=== PATIENT | female | born 1975 | race American Indian/Alaskan Native ===

== ENCOUNTER 2017-08-06 14:04 | Emergency (ER) | payer MEDICAID, OTHER ==
[~2017-08-06] VITALS: Ht 160 cm; Wt 86.4 kg
[~2017-08-06 14:04] MED LIST: BACI3.5O2 RIGHTEYE; DICL100G15 TP; GENT5DRO4 EACHEYE
[2017-08-06] MEDS ORDERED: ketorolac tromethamine 15mg/ml inj. IM ONE (17:10)
[2017-08-06] MEDS ORDERED: IBUP-1985 PO (17:14)
[2017-08-06] MEDS ORDERED: diazepam 5mg tablet PO ONE (17:15)
[2017-08-06 17:27] VITALS: BP 128/88
== END 2017-08-06 17:28 | disposition home or self-care (01) ==
LOC: ER 14:05
DX: M54.5 Low back pain (principal); K21.9 Gastro-esophageal reflux disease without esophagitis; Z90.49 Acquired absence of other specified parts of digestive tract; Z98.890 Other specified postprocedural states; Z88.5 Allergy status to narcotic agent; Z88.8 Allergy status to other drugs, medicaments and biological substances; Z79.899 Other long term (current) drug therapy; X58.XXXA Exposure to other specified factors, initial encounter; Y93.89 Activity, other specified; Y92.89 Other specified places as the place of occurrence of the external cause; Y99.8 Other external cause status
CPT/HCPCS: 96372; 99283; J1885

== ENCOUNTER 2017-09-10 20:46 | Emergency (ER) | payer MEDICAID, OTHER ==
[~2017-09-10] VITALS: Ht 160 cm; Wt 84.0 kg
[~2017-09-10 20:46] MED LIST changes: +IBUP-1985 PO
[2017-09-10 20:54] VITALS: BP 120/90
[2017-09-10] MEDS ORDERED: CIP750T PO (21:28)
[2017-09-10] MEDS ORDERED: ONDA8TAB9 PO ×2 (21:28→21:32)
[2017-09-10] MEDS ORDERED: ondansetron 4mg rapidly disintigrating tab PO ONE (21:30)
[2017-09-10] MEDS ORDERED: ibuprofen tablet 400 MG TABLET PO ONE (21:30)
[2017-09-10 21:43] LABS: URINE HCG NEGATIVE (NEG)
== END 2017-09-10 22:32 | disposition left against medical advice (07) ==
LOC: ER 20:47
DX: R05 Cough (principal); R51 Headache; R11.2 Nausea with vomiting, unspecified; M54.9 Dorsalgia, unspecified; K21.9 Gastro-esophageal reflux disease without esophagitis; Z90.49 Acquired absence of other specified parts of digestive tract; Z98.890 Other specified postprocedural states; Z88.5 Allergy status to narcotic agent; Z88.8 Allergy status to other drugs, medicaments and biological substances; Z79.899 Other long term (current) drug therapy
CPT/HCPCS: 81025; 99283

== ENCOUNTER 2017-10-02 01:52 | Emergency (ER) | payer MEDICAID, OTHER ==
[~2017-10-02] VITALS: Ht 158.8 cm; Wt 87.0 kg
[~2017-10-02 01:52] MED LIST changes: +CIP750T PO; +ONDA8TAB9 PO
[2017-10-02 02:00] VITALS: BP 113/78
[2017-10-02] MEDS ORDERED: AZIT-63 PO (03:02)
[2017-10-02] MEDS ORDERED: BENZ-16 PO (03:02)
== END 2017-10-02 03:30 | disposition home or self-care (01) ==
LOC: ER 01:52
DX: J40 Bronchitis, not specified as acute or chronic (principal); K21.9 Gastro-esophageal reflux disease without esophagitis; Z90.49 Acquired absence of other specified parts of digestive tract; Z98.890 Other specified postprocedural states; Z88.8 Allergy status to other drugs, medicaments and biological substances; Z88.5 Allergy status to narcotic agent; Z79.899 Other long term (current) drug therapy
CPT/HCPCS: 99283

== ENCOUNTER 2017-12-02 13:25 | Emergency (ER) | payer MEDICAID ==
[~2017-12-02] VITALS: Ht 157.5 cm; Wt 85.2 kg
[~2017-12-02 13:25] MED LIST changes: -CIP750T PO
[2017-12-02 13:42] VITALS: BP 120/74
[2017-12-02] MEDS ORDERED: ESCI10TA PO (14:08)
[2017-12-02] MEDS ORDERED: LORazepam 1 MG tablet PO ONE (14:10)
== END 2017-12-02 14:21 | disposition home or self-care (01) ==
LOC: ER 13:25
DX: F41.9 Anxiety disorder, unspecified (principal); K21.9 Gastro-esophageal reflux disease without esophagitis; F32.9 Major depressive disorder, single episode, unspecified; G89.29 Other chronic pain; M25.552 Pain in left hip; Z90.49 Acquired absence of other specified parts of digestive tract; Z98.890 Other specified postprocedural states; Z88.5 Allergy status to narcotic agent; Z88.8 Allergy status to other drugs, medicaments and biological substances; Z79.899 Other long term (current) drug therapy
CPT/HCPCS: 99284

== ENCOUNTER 2018-02-21 13:34 | Emergency (ER) | payer MEDICAID ==
[~2018-02-21] VITALS: Ht 158.8 cm; Wt 84.3 kg
[~2018-02-21 13:34] MED LIST changes: +ESCI10TA PO
[2018-02-21 13:53] VITALS: BP 127/73
[2018-02-21] MEDS ORDERED: AZIT250T83 PO (14:09)
== END 2018-02-21 14:17 | disposition home or self-care (01) ==
LOC: ER 13:34
DX: J06.9 Acute upper respiratory infection, unspecified (principal); K21.9 Gastro-esophageal reflux disease without esophagitis; Z90.49 Acquired absence of other specified parts of digestive tract; Z98.890 Other specified postprocedural states; Z88.5 Allergy status to narcotic agent; Z88.8 Allergy status to other drugs, medicaments and biological substances; Z79.2 Long term (current) use of antibiotics; Z79.899 Other long term (current) drug therapy
CPT/HCPCS: 99283

== ENCOUNTER 2018-03-18 14:39 | Emergency (ER) | payer MEDICAID ==
[~2018-03-18] VITALS: Ht 157.5 cm; Wt 82.2 kg
[2018-03-18 14:43] VITALS: BP 122/74
[2018-03-18] MEDS ORDERED: NAPR-56 PO (16:00)
[2018-03-18] MEDS ORDERED: ketorolac trometh inj. 60 MG/2 ML VIAL IM ONE (16:00)
[2018-03-18 16:17] LABS: CLARITY,URINE CLOUDY (Clear); COLOR,URINE YELLOW (Yellow); GLUCOSE, URINE NEGATIVE (Neg); KETONES,URINE TRACE mg/dl (Neg); LEUKOCYTE ESTERASE ,URINE SMALL (Neg); NITRITES, URINE NEGATIVE (Neg); OCCULT BLOOD,URINE TRACE-INTACT (Neg); PH,URINE 5.5 (4.8-8.0); PROTEIN,URINE NEGATIVE (Neg)
[2018-03-18 16:26] LABS: UA COLLECTION TYPE CLN CATCH MIDSTREAM
[2018-03-18 16:27] LABS: MUCUS STRANDS MODERATE /LPF (Neg); SQUAMOUS EPITHELIAL CELL,UR MODERATE /LPF (FEW)
[2018-03-18 16:28] LABS: BACTERIA,URINE 1+ /HPF (Neg); WBC,URINE 50-100 /HPF (0-4)
--- NOTE | 2018-03-21 09:00 | NUR ---
LAB CALLED WITH MDRO ON URINE SAMPLE, LAB RESULTS RECIEVED AND NOTED THAT PT HAD NOT BEEN GIVEN ABX AT [facility]. ABNORMAL LAB SHEET FILLED OUT AND GIVEN TO DR ROCHA FOR F/U
== END 2018-03-18 16:26 | disposition home or self-care (01) ==
LOC: ER 14:40
DX: M54.6 Pain in thoracic spine (principal); M62.830 Muscle spasm of back; K21.9 Gastro-esophageal reflux disease without esophagitis; Z90.49 Acquired absence of other specified parts of digestive tract; Z98.890 Other specified postprocedural states; Z88.8 Allergy status to other drugs, medicaments and biological substances; Z79.899 Other long term (current) drug therapy
CPT/HCPCS: 81001; 87088; 96372; 99283; J1885; 87077; 87186

== ENCOUNTER 2018-03-26 09:28 | Emergency (ER) | payer MEDICAID ==
[~2018-03-26] VITALS: Ht 157.5 cm; Wt 84.0 kg
[~2018-03-26 09:28] MED LIST changes: +NAPR-56 PO
[2018-03-26 10:33] LABS: BASOPHILS % (AUTO) 0.4 % (0-1); EOSINOPHILS # (AUTO) 0.2 X10'3 (0-0.9); EOSINOPHILS % (AUTO) 2.3 % (0-6); HEMOGLOBIN 14.2 g/dl (12.0-16.0); LYMPHOCYTES # (AUTO) 1.1 X10'3 (1.1-4.8); LYMPHOCYTES % (AUTO) 15.5 % (21-51); MEAN CORPUSCULAR HEMOGLOBIN 29.8 PG (27.0-31.0); MEAN CORPUSCULAR HGB CONC 33.8 g/dL (33.0-36.5); MEAN PLATELET VOLUME 8.6 FL (7.4-10.4); MONOCYTES # (AUTO) 0.4 X10'3 (0-0.9); MONOCYTES % (AUTO) 5.9 % (2-12); NEUTROPHILS # (AUTO) 5.4 X10'3 (1.8-7.7); NEUTROPHILS % (AUTO) 75.9 % (42-75); PLATELET COUNT 269 X10'3 (140-440); RED BLOOD COUNT 4.77 X10'6 (4.20-5.60); RED CELL DISTRIBUTION WIDTH 13.3 % (11.5-14.5); WHITE BLOOD COUNT 7.1 X10'3 (4.5-11.0)
[2018-03-26 10:50] LABS: ALANINE AMINOTRANSFERASE 55 U/L (12-78); ALBUMIN 3.5 G/DL (3.4-5.0); ALBUMIN/GLOBULIN RATIO 0.8 (1.1-1.5); ALKALINE PHOSPHATASE 97 IU/L (46-116); ANION GAP 6 (8-16); ASPARTATE AMINO TRANSFERASE 31 U/L (10-37); BILIRUBIN,TOTAL 0.3 MG/DL (0.1-1.0); BLOOD UREA NITROGEN 11 MG/DL (7-18); BUN/CREATININE RATIO 13.6 (6.6-38.0); CALCIUM 8.9 MG/DL (8.5-10.1); CHLORIDE 103 MMOL/L (99-107); CREATININE 0.81 MG/DL (0.40-0.90); GLUCOSE 115 MG/DL (70-104); POTASSIUM 4.1 MMOL/L (3.5-5.1); SODIUM 139 MMOL/L (135-145); TOTAL CARBON DIOXIDE 30.1 MMOL/L (24-32); TOTAL PROTEIN 7.8 G/DL (6.4-8.2); eGFR 77 ML/MIN
[2018-03-26] MEDS ORDERED: CIPR-230 PO (12:08)
[2018-03-26 12:10] VITALS: BP 125/77
--- NOTE | 2018-03-26 12:10 | NUR ---
PT REPORTS SYMPTOMS OF N/V AND ABD HAVE RESOLVED IN ED.
== END 2018-03-26 12:33 | disposition home or self-care (01) ==
LOC: ER 09:28
DX: T39.8X5A Adverse effect of other nonopioid analgesics and antipyretics, not elsewhere classified, initial encounter (principal); N39.0 Urinary tract infection, site not specified; K21.9 Gastro-esophageal reflux disease without esophagitis; Z90.49 Acquired absence of other specified parts of digestive tract; Z98.890 Other specified postprocedural states; Z86.69 Personal history of other diseases of the nervous system and sense organs; Z88.5 Allergy status to narcotic agent; Z88.1 Allergy status to other antibiotic agents; Z88.8 Allergy status to other drugs, medicaments and biological substances; Z79.2 Long term (current) use of antibiotics; Z79.899 Other long term (current) drug therapy; Y92.89 Other specified places as the place of occurrence of the external cause
CPT/HCPCS: 36415; 80053; 84702; 85025; 99283

== ENCOUNTER 2018-05-02 21:05 | Emergency (ER) | payer MEDICAID ==
[~2018-05-02] VITALS: Ht 157.5 cm; Wt 79.0 kg
[~2018-05-02 21:05] MED LIST changes: -NAPR-56 PO
[2018-05-02 21:15] VITALS: BP 131/91
[2018-05-02] MEDS ORDERED: ibuprofen tablet 400 MG TABLET PO ONE (23:10)
[2018-05-02] MEDS ORDERED: cyclobenzaprine 10mg tablet PO ONE (23:10)
[2018-05-02] MEDS ORDERED: CYCL-1 PO (23:26)
== END 2018-05-02 23:42 | disposition home or self-care (01) ==
LOC: ER 21:05
DX: S39.012A Strain of muscle, fascia and tendon of lower back, initial encounter (principal); G89.29 Other chronic pain; M25.552 Pain in left hip; K21.9 Gastro-esophageal reflux disease without esophagitis; Z90.49 Acquired absence of other specified parts of digestive tract; Z88.6 Allergy status to analgesic agent; Z88.1 Allergy status to other antibiotic agents; Z88.2 Allergy status to sulfonamides; Z88.8 Allergy status to other drugs, medicaments and biological substances; X50.0XXA Overexertion from strenuous movement or load, initial encounter; Y93.89 Activity, other specified; Y92.89 Other specified places as the place of occurrence of the external cause; Y99.0 Civilian activity done for income or pay
CPT/HCPCS: 99283

== ENCOUNTER 2018-10-02 19:59 | Emergency (ER) | payer MEDICAID ==
[~2018-10-02] VITALS: Ht 157.5 cm; Wt 75.0 kg
[~2018-10-02 19:59] MED LIST changes: +CYCL-1 PO
[2018-10-02] MEDS ORDERED: orphenadrine citrate 60mg/2ml inj. IM ONE (20:35)
[2018-10-02] MEDS ORDERED: ketorolac trometh inj. 60 MG/2 ML VIAL IM ONE (20:35)
[2018-10-02] MEDS ORDERED: HYDROcodone/acetaminophen 10/325mg tab PO ONE (20:35)
[2018-10-02] MEDS ORDERED: HYDR-4353 PO (20:37)
[2018-10-02] MEDS ORDERED: ORPH100T2 PO (20:37)
[2018-10-02] MEDS ORDERED: IBUP-1986 PO (20:37)
--- NOTE | 2018-10-02 21:05 | NUR ---
PATIENT IS NOT ALLERGIC TO CODEINE: A CHILD IT MADE HER VERY SLEEPY: NOW LISTED AN ADVERSE REACTION
--- NOTE | 2018-10-02 21:07 | NUR ---
PATIENT CO OF LOWER MEDIAL BACK DULL ACHING PAIN THAT DID NOT ALLOW SLEEP LAST NIGHT : ALLEVE AND ICE TO NO RELIEF
[2018-10-02 21:29] VITALS: BP 128/67
== END 2018-10-02 21:38 | disposition home or self-care (01) ==
LOC: ER 20:00
DX: M54.5 Low back pain (principal); K21.9 Gastro-esophageal reflux disease without esophagitis; E11.9 Type 2 diabetes mellitus without complications; G89.29 Other chronic pain; F41.9 Anxiety disorder, unspecified; F32.9 Major depressive disorder, single episode, unspecified; Z90.49 Acquired absence of other specified parts of digestive tract; Z98.890 Other specified postprocedural states; Z88.8 Allergy status to other drugs, medicaments and biological substances; Z88.2 Allergy status to sulfonamides; Z79.2 Long term (current) use of antibiotics; Z79.899 Other long term (current) drug therapy
CPT/HCPCS: 96372; 99283; J1885; J2360

== ENCOUNTER 2019-01-31 18:57 | Emergency (ER) | payer MEDICAID ==
[~2019-01-31] VITALS: Ht 157.5 cm; Wt 85.0 kg
[~2019-01-31 18:57] MED LIST changes: +IBUP-1986 PO; +ORPH100T2 PO
[2019-01-31 19:05] VITALS: BP 136/84
[2019-01-31 19:28] LABS: CLARITY,URINE CLOUDY (Clear); COLOR,URINE YELLOW (Yellow); GLUCOSE, URINE 250 mg/dl (Neg); KETONES,URINE NEGATIVE (Neg); LEUKOCYTE ESTERASE ,URINE MODERATE (Neg); NITRITES, URINE POSITIVE (Neg); OCCULT BLOOD,URINE LARGE (Neg); PROTEIN,URINE TRACE mg/dl (Neg)
[2019-01-31 19:29] LABS: URINE HCG NEGATIVE (NEG)
[2019-01-31 19:34] LABS: UA COLLECTION TYPE CLN CATCH MIDSTREAM
[2019-01-31 19:37] LABS: BACTERIA,URINE 1+ /HPF (Neg); MUCUS STRANDS FEW /LPF (Neg); SQUAMOUS EPITHELIAL CELL,UR MODERATE /LPF (FEW); WBC CLUMPS,URINE MODERATE /HPF (NEGATIVE); WBC,URINE 50-100 /HPF (0-4)
[2019-01-31] MEDS ORDERED: CEPH250T PO (19:46)
== END 2019-01-31 20:43 | disposition home or self-care (01) ==
LOC: ER 18:58
DX: N39.0 Urinary tract infection, site not specified (principal); K21.9 Gastro-esophageal reflux disease without esophagitis; E11.9 Type 2 diabetes mellitus without complications; G89.29 Other chronic pain; F41.9 Anxiety disorder, unspecified; F32.9 Major depressive disorder, single episode, unspecified; Z88.8 Allergy status to other drugs, medicaments and biological substances; Z88.2 Allergy status to sulfonamides; Z88.6 Allergy status to analgesic agent; Z79.2 Long term (current) use of antibiotics; Z79.899 Other long term (current) drug therapy; Z90.49 Acquired absence of other specified parts of digestive tract
CPT/HCPCS: 81001; 81025; 87077; 87088; 87186; 99283

== ENCOUNTER 2019-08-02 19:45 | Emergency (ER) | payer MEDICAID ==
[~2019-08-02] VITALS: Ht 160 cm; Wt 85.8 kg
[2019-08-02 19:47] VITALS: BP 133/72
[2019-08-02] MEDS ORDERED: ESCI10TA PO (20:15)
== END 2019-08-02 20:43 | disposition home or self-care (01) ==
LOC: ER 19:46
DX: F32.9 Major depressive disorder, single episode, unspecified (principal); K21.9 Gastro-esophageal reflux disease without esophagitis; E11.9 Type 2 diabetes mellitus without complications; G89.29 Other chronic pain; F41.9 Anxiety disorder, unspecified; Z76.0 Encounter for issue of repeat prescription; Z90.49 Acquired absence of other specified parts of digestive tract; Z98.890 Other specified postprocedural states; Z88.2 Allergy status to sulfonamides; Z88.8 Allergy status to other drugs, medicaments and biological substances; Z79.899 Other long term (current) drug therapy
CPT/HCPCS: 99281

== ENCOUNTER 2020-04-08 16:55 | Emergency (ER) | payer MEDICAID ==
[~2020-04-08] VITALS: Ht 152.4 cm; Wt 84.4 kg
[2020-04-08 17:08] VITALS: BP 118/83
[2020-04-08 17:36] LABS: BASOPHILS # (AUTO) 0.1 X10'3 (0-0.2); BASOPHILS % (AUTO) 0.9 % (0-1); EOSINOPHILS # (AUTO) 0.2 X10'3 (0-0.9); EOSINOPHILS % (AUTO) 2.1 % (0-6); HEMATOCRIT 39.5 % (35.0-45.0); HEMOGLOBIN 13.4 g/dl (12.0-16.0); LYMPHOCYTES # (AUTO) 2.5 X10'3 (1.1-4.8); LYMPHOCYTES % (AUTO) 29.4 % (21-51); MEAN CORPUSCULAR HEMOGLOBIN 29.1 PG (27.0-31.0); MEAN CORPUSCULAR HGB CONC 34.1 g/dL (33.0-36.5); MEAN CORPUSCULAR VOLUME 85.4 FL (78-98); MEAN PLATELET VOLUME 8.6 FL (7.4-10.4); MONOCYTES # (AUTO) 0.6 X10'3 (0-0.9); MONOCYTES % (AUTO) 7.2 % (2-12); NEUTROPHILS # (AUTO) 5.2 X10'3 (1.8-7.7); NEUTROPHILS % (AUTO) 60.4 % (42-75); PLATELET COUNT 274 X10'3 (140-440); RED BLOOD COUNT 4.62 X10'6 (4.20-5.60); RED CELL DISTRIBUTION WIDTH 12.7 % (11.5-14.5); WHITE BLOOD COUNT 8.7 X10'3 (4.5-11.0)
[2020-04-08 17:53] LABS: ALANINE AMINOTRANSFERASE 41 U/L (12-78); ALBUMIN 3.5 G/DL (3.4-5.0); ALBUMIN/GLOBULIN RATIO 0.8 (1.1-1.5); ALKALINE PHOSPHATASE 99 IU/L (46-116); ANION GAP 8 (8-16); ASPARTATE AMINO TRANSFERASE 28 U/L (10-37); BILIRUBIN,TOTAL 0.6 MG/DL (0.1-1.0); BLOOD UREA NITROGEN 10 MG/DL (7-18); BUN/CREATININE RATIO 11.9 (6.6-38.0); CALCIUM 8.6 MG/DL (8.5-10.1); CHLORIDE 103 MMOL/L (99-107); CREATININE 0.84 MG/DL (0.40-0.90); GLUCOSE 164 MG/DL (70-104); POTASSIUM 3.8 MMOL/L (3.5-5.1); SODIUM 139 MMOL/L (135-145); TOTAL CARBON DIOXIDE 27.7 MMOL/L (24-32); TOTAL PROTEIN 7.7 G/DL (6.4-8.2); eGFR 73 ML/MIN
== END 2020-04-08 18:44 | disposition home or self-care (01) ==
LOC: ER 16:56
DX: N93.8 Other specified abnormal uterine and vaginal bleeding (principal); G40.909 Epilepsy, unspecified, not intractable, without status epilepticus; K21.9 Gastro-esophageal reflux disease without esophagitis; E11.9 Type 2 diabetes mellitus without complications; G89.29 Other chronic pain; Z87.440 Personal history of urinary (tract) infections; Z78.0 Asymptomatic menopausal state; Z87.81 Personal history of (healed) traumatic fracture; Z90.49 Acquired absence of other specified parts of digestive tract; Z88.2 Allergy status to sulfonamides; Z88.8 Allergy status to other drugs, medicaments and biological substances; Z79.899 Other long term (current) drug therapy
CPT/HCPCS: 36415; 80053; 85025; 99284

== ENCOUNTER 2020-05-05 20:58 | Emergency (ER) | payer MEDICAID ==
[~2020-05-05] VITALS: Ht 157.5 cm; Wt 99.0 kg
[2020-05-05] MEDS ORDERED: ESCI20TA15 PO (23:01)
[2020-05-05 23:10] VITALS: BP 128/61
== END 2020-05-05 23:11 | disposition home or self-care (01) ==
LOC: ER 20:59
DX: F41.9 Anxiety disorder, unspecified (principal); G40.909 Epilepsy, unspecified, not intractable, without status epilepticus; K21.9 Gastro-esophageal reflux disease without esophagitis; E11.9 Type 2 diabetes mellitus without complications; G89.29 Other chronic pain; F32.9 Major depressive disorder, single episode, unspecified; Z87.440 Personal history of urinary (tract) infections; Z87.81 Personal history of (healed) traumatic fracture; Z90.49 Acquired absence of other specified parts of digestive tract; Z98.890 Other specified postprocedural states; Z79.2 Long term (current) use of antibiotics; Z79.899 Other long term (current) drug therapy; Z88.2 Allergy status to sulfonamides; Z88.8 Allergy status to other drugs, medicaments and biological substances
CPT/HCPCS: 93005; 99283

== ENCOUNTER 2020-07-10 23:21 | Emergency (ER) | payer MEDICAID ==
[~2020-07-10] VITALS: Ht 157.5 cm; Wt 84.4 kg
[~2020-07-10 23:21] MED LIST changes: +ESCI20TA15 PO
[2020-07-11 00:25] LABS: WHITE BLOOD COUNT 9.1 X10'3 (4.5-11.0)
[2020-07-11 00:27] LABS: BASOPHILS % (AUTO) 0.5 % (0-1); EOSINOPHILS # (AUTO) 0.2 X10'3 (0-0.9); EOSINOPHILS % (AUTO) 2.4 % (0-6); HEMATOCRIT 39.4 % (35.0-45.0); HEMOGLOBIN 13.1 g/dl (12.0-16.0); LYMPHOCYTES # (AUTO) 2.7 X10'3 (1.1-4.8); LYMPHOCYTES % (AUTO) 30.1 % (21-51); MEAN CORPUSCULAR HEMOGLOBIN 26.6 PG (27.0-31.0); MEAN CORPUSCULAR HGB CONC 33.2 g/dL (33.0-36.5); MEAN PLATELET VOLUME 8.2 FL (7.4-10.4); MONOCYTES # (AUTO) 0.8 X10'3 (0-0.9); MONOCYTES % (AUTO) 8.6 % (2-12); NEUTROPHILS # (AUTO) 5.3 X10'3 (1.8-7.7); NEUTROPHILS % (AUTO) 58.4 % (42-75); PLATELET COUNT 300 X10'3 (140-440); RED BLOOD COUNT 4.93 X10'6 (4.20-5.60); RED CELL DISTRIBUTION WIDTH 15.4 % (11.5-14.5)
[2020-07-11 00:28] LABS: ALANINE AMINOTRANSFERASE 63 U/L (12-78); ALBUMIN 3.2 G/DL (3.4-5.0); ALBUMIN/GLOBULIN RATIO 0.8 (1.1-1.5); ALKALINE PHOSPHATASE 117 IU/L (46-116); ANION GAP 5 (8-16); ASPARTATE AMINO TRANSFERASE 42 U/L (10-37); BILIRUBIN,TOTAL 0.5 MG/DL (0.1-1.0); BLOOD UREA NITROGEN 9 MG/DL (7-18); BUN/CREATININE RATIO 10.7 (6.6-38.0); CALCIUM 8.2 MG/DL (8.5-10.1); CHLORIDE 103 MMOL/L (99-107); CREATININE 0.84 MG/DL (0.40-0.90); GLUCOSE 174 MG/DL (70-104); POTASSIUM 3.6 MMOL/L (3.5-5.1); SODIUM 139 MMOL/L (135-145); TOTAL CARBON DIOXIDE 30.9 MMOL/L (24-32); TOTAL PROTEIN 7.4 G/DL (6.4-8.2); eGFR 73 ML/MIN
[2020-07-11 00:35] LABS: TROPONIN I < 0.04 NG/ML (0.0-0.05)
--- NOTE | 2020-07-11 02:34 | NUR ---
3 hr trop drawn
[2020-07-11 04:38] VITALS: BP 106/60
== END 2020-07-11 04:46 | disposition home or self-care (01) ==
LOC: ER 23:21
DX: R07.89 Other chest pain (principal); E11.9 Type 2 diabetes mellitus without complications; G40.909 Epilepsy, unspecified, not intractable, without status epilepticus; K21.9 Gastro-esophageal reflux disease without esophagitis; G89.29 Other chronic pain; Z87.81 Personal history of (healed) traumatic fracture; Z87.440 Personal history of urinary (tract) infections; Z90.49 Acquired absence of other specified parts of digestive tract; Z98.890 Other specified postprocedural states; Z79.2 Long term (current) use of antibiotics; Z79.899 Other long term (current) drug therapy; Z88.2 Allergy status to sulfonamides; Z88.8 Allergy status to other drugs, medicaments and biological substances
CPT/HCPCS: 36415; 71045; 80053; 83880; 84484; 85025; 93005; 99285

== ENCOUNTER 2020-09-01 20:17 | Emergency (ER) | payer MEDICAID, OTHER ==
[~2020-09-01] VITALS: Ht 161.3 cm; Wt 84.0 kg
[2020-09-01 20:24] VITALS: BP 135/86
[2020-09-01] MEDS ORDERED: CEPH250T PO (20:40)
== END 2020-09-01 20:48 | disposition home or self-care (01) ==
LOC: ER 20:18
DX: S90.931A Unspecified superficial injury of right great toe, initial encounter (principal); E11.9 Type 2 diabetes mellitus without complications; K21.9 Gastro-esophageal reflux disease without esophagitis; F41.9 Anxiety disorder, unspecified; F32.9 Major depressive disorder, single episode, unspecified; Z87.81 Personal history of (healed) traumatic fracture; X58.XXXA Exposure to other specified factors, initial encounter; Y93.89 Activity, other specified; Y92.89 Other specified places as the place of occurrence of the external cause; Y99.8 Other external cause status; Z88.8 Allergy status to other drugs, medicaments and biological substances; Z88.2 Allergy status to sulfonamides; Z88.5 Allergy status to narcotic agent; Z79.899 Other long term (current) drug therapy
CPT/HCPCS: 99283

== ENCOUNTER 2020-10-01 23:39 | Emergency (ER) | payer MEDICAID ==
[~2020-10-01] VITALS: Ht 157.5 cm; Wt 88.0 kg
--- NOTE | 2020-10-02 00:19 | NUR ---
PT WORKS [employer], REPORTS HEARING/FEELING A "POP/ SNAP" FOLLOWED BY PAIN. PAIN STARTED TO SUBSIDE AFTER REST AND OTC MEDICATION. PT STATED SHE GOT UP TO USE RESTROOM WHEN HER DOG BUMPED HER HIP AND THE PAIN WAS THEN UNBEARABLE. PT HAS LIMITED ROM IN LEFT HIP, REPORTING 10/10 PAIN. PLAN FOR TOTAL HIP TO BE DONE BY DR. CONNER.
[2020-10-02] MEDS ORDERED: morphine 5 MG/ML injection IM ONE (00:35)
[2020-10-02] MEDS ORDERED: HYDROcodone/acetaminophen 10/325mg tab PO ONE (00:35)
[2020-10-02] MEDS ORDERED: HYDR-3972 PO (00:42)
[2020-10-02] MEDS ORDERED: ORPH100T2 PO (00:43)
[2020-10-02] MEDS ORDERED: morphine 10mg/ml inj. IM ONE (00:45)
[2020-10-02 01:02] VITALS: BP 129/72
== END 2020-10-02 01:03 | disposition home or self-care (01) ==
LOC: ER 23:39
DX: G89.29 Other chronic pain (principal); M25.552 Pain in left hip; G40.909 Epilepsy, unspecified, not intractable, without status epilepticus; K21.9 Gastro-esophageal reflux disease without esophagitis; E11.9 Type 2 diabetes mellitus without complications; Z87.81 Personal history of (healed) traumatic fracture; Z87.440 Personal history of urinary (tract) infections; Z90.49 Acquired absence of other specified parts of digestive tract; Z88.2 Allergy status to sulfonamides; Z88.8 Allergy status to other drugs, medicaments and biological substances; Z79.2 Long term (current) use of antibiotics; Z79.899 Other long term (current) drug therapy
CPT/HCPCS: 96372; 99284; J2270

== ENCOUNTER 2022-02-04 17:04 | Emergency (ER) | payer MEDICAID ==
[~2022-02-04] VITALS: Ht 160 cm; Wt 82.7 kg
[2022-02-04 18:29] VITALS: BP 138/77
[2022-02-04 18:56] LABS: BASOPHILS % (AUTO) 0.4 % (0-1); EOSINOPHILS % (AUTO) 0.3 % (0-6); HEMATOCRIT 38.7 % (35.0-45.0); HEMOGLOBIN 12.1 g/dl (12.0-16.0); LYMPHOCYTES # (AUTO) 1.7 X10'3 (1.1-4.8); LYMPHOCYTES % (AUTO) 15.6 % (21-51); MEAN CORPUSCULAR HEMOGLOBIN 23.2 PG (27.0-31.0); MEAN CORPUSCULAR HGB CONC 31.2 g/dL (33.0-36.5); MEAN CORPUSCULAR VOLUME 74.3 FL (78-98); MEAN PLATELET VOLUME 8.1 FL (7.4-10.4); MONOCYTES # (AUTO) 0.6 X10'3 (0-0.9); MONOCYTES % (AUTO) 5.3 % (2-12); NEUTROPHILS # (AUTO) 8.8 X10'3 (1.8-7.7); NEUTROPHILS % (AUTO) 78.4 % (42-75); PLATELET COUNT 411 X10'3 (140-440); RED CELL DISTRIBUTION WIDTH 16.5 % (11.5-14.5); WHITE BLOOD COUNT 11.2 X10'3 (4.5-11.0)
[2022-02-04 19:12] LABS: ALANINE AMINOTRANSFERASE 65 U/L (12-78); ALBUMIN 3.6 G/DL (3.4-5.0); ALBUMIN/GLOBULIN RATIO 0.8 (1.1-1.5); ALKALINE PHOSPHATASE 111 IU/L (46-116); ANION GAP 10 (8-16); ASPARTATE AMINO TRANSFERASE 50 U/L (10-37); BILIRUBIN,TOTAL 0.9 MG/DL (0.1-1.0); BLOOD UREA NITROGEN 10 MG/DL (7-18); BUN/CREATININE RATIO 11.8 (6.6-38.0); CALCIUM 8.7 MG/DL (8.5-10.1); CHLORIDE 101 MMOL/L (99-107); CREATININE 0.85 MG/DL (0.40-0.90); GLUCOSE 148 MG/DL (70-104); LIPASE 127 U/L (73-393); POTASSIUM 3.9 MMOL/L (3.5-5.1); SODIUM 137 MMOL/L (135-145); TOTAL CARBON DIOXIDE 26.2 MMOL/L (24-32); TOTAL PROTEIN 8.4 G/DL (6.4-8.2); eGFR 72 ML/MIN
[2022-02-04] MEDS ORDERED: mag hydrox/Alum hydrox/simeth 30ml oral suspension PO ONE (21:15)
[2022-02-04] MEDS ORDERED: LIDOcaine Viscous 15ml cup MM ONE (21:15)
[2022-02-04] MEDS ORDERED: ondansetron 4mg rapidly disintigrating tab PO ONE (21:15)
[2022-02-04] MEDS ORDERED: pantoprazole 40mg Tablet.DR PO SCH (21:15)
[2022-02-04] MEDS ORDERED: PANT20TA18 PO (21:27)
[2022-02-04] MEDS ORDERED: ONDA4TAB12 PO (21:27)
== END 2022-02-04 21:52 | disposition home or self-care (01) ==
LOC: ER 17:05
DX: K29.00 Acute gastritis without bleeding (principal); K21.9 Gastro-esophageal reflux disease without esophagitis; E11.9 Type 2 diabetes mellitus without complications; G89.29 Other chronic pain; F41.9 Anxiety disorder, unspecified; F32.9 Major depressive disorder, single episode, unspecified; Z90.49 Acquired absence of other specified parts of digestive tract; Z98.890 Other specified postprocedural states; Z79.899 Other long term (current) drug therapy; Z88.2 Allergy status to sulfonamides; Z88.5 Allergy status to narcotic agent; Z88.8 Allergy status to other drugs, medicaments and biological substances
CPT/HCPCS: 36415; 80053; 83690; 85025; 99284

== ENCOUNTER 2022-09-24 16:50 | Emergency (ER) | payer MEDICAID ==
[~2022-09-24] VITALS: Ht 157.5 cm; Wt 80.6 kg
[~2022-09-24 16:50] MED LIST changes: +GENT5DRO22 EACHEYE; -GENT5DRO4 EACHEYE; +ONDA4TAB12 PO; -ORPH100T2 PO; +ORPH100T4 PO; +PANT20TA18 PO
[2022-09-24 17:07] VITALS: BP 120/73; PULSE 52; RESP 18; TEMP 97.7; O2SAT 97
[2022-09-24] MEDS ORDERED: CEPH-585 PO (17:16)
== END 2022-09-24 17:22 | disposition home or self-care (01) ==
LOC: ER 16:50
DX: L60.1 Onycholysis (principal); L60.0 Ingrowing nail; K21.9 Gastro-esophageal reflux disease without esophagitis; E11.9 Type 2 diabetes mellitus without complications; F31.9 Bipolar disorder, unspecified; Z88.8 Allergy status to other drugs, medicaments and biological substances; Z88.2 Allergy status to sulfonamides; Z79.899 Other long term (current) drug therapy; Z79.1 Long term (current) use of non-steroidal anti-inflammatories (NSAID); Z79.2 Long term (current) use of antibiotics
CPT/HCPCS: 99283

== ENCOUNTER 2023-04-30 12:52 | Emergency (ER) | payer MEDICAID ==
[~2023-04-30] VITALS: Ht 157.5 cm; Wt 83.0 kg
[~2023-04-30 12:52] MED LIST changes: +CEPH-585 PO; +GEN0.3OS EACHEYE; -GENT5DRO22 EACHEYE
[2023-04-30 13:57] LABS: BASOPHILS # (AUTO) 0.1 X10'3 (0-0.2); BASOPHILS % (AUTO) 0.8 % (0-1); EOSINOPHILS # (AUTO) 0.2 X10'3 (0-0.9); EOSINOPHILS % (AUTO) 1.8 % (0-6); HEMATOCRIT 37.8 % (35.0-45.0); HEMOGLOBIN 12.3 g/dl (12.0-16.0); LYMPHOCYTES % (AUTO) 19.7 % (21-51); MEAN CORPUSCULAR HEMOGLOBIN 25.6 PG (27.0-31.0); MEAN CORPUSCULAR HGB CONC 32.6 g/dL (33.0-36.5); MEAN CORPUSCULAR VOLUME 78.4 FL (78-98); MEAN PLATELET VOLUME 7.3 FL (7.4-10.4); MONOCYTES # (AUTO) 0.8 X10'3 (0-0.9); MONOCYTES % (AUTO) 8.1 % (2-12); NEUTROPHILS # (AUTO) 7.1 X10'3 (1.8-7.7); NEUTROPHILS % (AUTO) 69.6 % (42-75); PLATELET COUNT 491 X10'3 (140-440); RED BLOOD COUNT 4.82 X10'6 (4.20-5.60); RED CELL DISTRIBUTION WIDTH 16.9 % (11.5-14.5); WHITE BLOOD COUNT 10.2 X10'3 (4.5-11.0)
[2023-04-30 14:06] LABS: ANION GAP 6 (8-16); BLOOD UREA NITROGEN 9 MG/DL (7-18); BUN/CREATININE RATIO 11.3 (10.0-20.0); CALCIUM 8.5 MG/DL (8.5-10.1); CHLORIDE 103 MMOL/L (99-107); GLUCOSE 242 MG/DL (70-104); POTASSIUM 3.8 MMOL/L (3.5-5.1); SODIUM 138 MMOL/L (135-145); TOTAL CARBON DIOXIDE 28.8 MMOL/L (24-32); eCRCL 67 ML/MIN; eGFR 76 ML/MIN
[2023-04-30 14:08] LABS: D-DIMER 3.16 MG/L FEU (0-0.50)
[2023-04-30] MEDS: HYDROcodone/acetaminophen 10/325mg tab PO ONE (15:14)
[2023-04-30 15:57] VITALS: BP 116/80; PULSE 85; RESP 16; TEMP 98; O2SAT 100
== END 2023-04-30 15:58 | disposition home or self-care (01) ==
LOC: ER 12:53
DX: M66.0 Rupture of popliteal cyst (principal); M25.561 Pain in right knee
CPT/HCPCS: 36415; 73564; 80048; 85025; 85379; 93971; 99284

== ENCOUNTER 2023-11-22 20:18 | Emergency (ER) | payer MEDICAID ==
[~2023-11-22] VITALS: Ht 157.5 cm; Wt 77.7 kg
[~2023-11-22 20:18] MED LIST changes: -CEPH-585 PO; -ESCI20TA15 PO; +ESCI20TA51 PO; +ONDA-243 PO; -ONDA4TAB12 PO
[2023-11-22] MEDS ORDERED: MELO-100 PO (21:13)
[2023-11-22] MEDS: ketorolac trometh 30MG/ML vial 30 MG/ML VIAL IM ONE (21:21)
[2023-11-22] MEDS: HYDROcodone/acetaminophen 10/325mg tab PO ONE (21:22)
[2023-11-22] MEDS: ondansetron 4mg rapidly disintigrating tab PO ONE (21:22)
[2023-11-22 21:32] VITALS: BP 108/68; PULSE 81; RESP 16; TEMP 98; O2SAT 99
== END 2023-11-22 21:35 | disposition home or self-care (01) ==
LOC: ER 20:19
DX: M16.12 Unilateral primary osteoarthritis, left hip (principal); E11.9 Type 2 diabetes mellitus without complications; K21.9 Gastro-esophageal reflux disease without esophagitis; Z88.1 Allergy status to other antibiotic agents; Z88.2 Allergy status to sulfonamides; Z88.5 Allergy status to narcotic agent; Z88.6 Allergy status to analgesic agent; Z88.8 Allergy status to other drugs, medicaments and biological substances; Z87.440 Personal history of urinary (tract) infections; Z90.49 Acquired absence of other specified parts of digestive tract
CPT/HCPCS: 73502; 96372; 99283; J1885